=== PATIENT | female | born 1965 | race African-American/Black ===

== ENCOUNTER 2020-09-14 09:13 | Emergency (ER) | payer MEDICAID, MEDICARE ==
[~2020-09-14] VITALS: Ht 165.1 cm; Wt 91.0 kg
[~2020-09-14 09:13] MED LIST: HTN MEDS; LOVA10TA54
[2020-09-14] MEDS ORDERED: HYDROCODONE/ACETAMINOPHEN 5/325MG TABLET PO ONE (10:15)
[2020-09-14] MEDS ORDERED: ONDANSETRON 4MG ODT PO ONE (10:15)
[2020-09-14] MEDS ORDERED: KETOROLAC 60MG/2ML VIAL IM ONE (10:30)
[2020-09-14 12:03] VITALS: BP 168/89
== END 2020-09-14 13:50 | disposition home or self-care (01) ==
LOC: ER 09:35
DX: M54.5 Low back pain (principal); I10 Essential (primary) hypertension; E78.5 Hyperlipidemia, unspecified
CPT/HCPCS: 72100; 96372; 99283; J1885; Q0162

== ENCOUNTER 2022-02-15 10:50 | Emergency (ER) | payer MEDICARE ==
[~2022-02-15] VITALS: Ht 165.1 cm; Wt 91.0 kg
[2022-02-15] MEDS ORDERED: SODIUM CHLORIDE 0.9% 1,000 ML IV ONE (11:15)
[2022-02-15] MEDS ORDERED: ACETAMINOPHEN 325MG TABLET PO ONE (11:15)
[2022-02-15] MEDS ORDERED: KETOROLAC 15MG/ML VIAL IV ONE (11:30)
[2022-02-15 11:45] LABS: HEMATOCRIT. 40.3 % (36.0-48.0); MEAN CORPUSCULAR HEMOGLOBIN 30.7 pg (28.0-32.0); MEAN PLATELET VOLUME 7.8 fl (7.4-10.4); PLATELET 224 x1000/uL (130-400); RED BLOOD CELL COUNT 4.58 mill/uL (4.2-5.4); RED CELL DISTRIBUTION WIDTH 13.4 % (11.6-14.6)
[2022-02-15 11:53] LABS: CHLORIDE 107 mEq/L (98-107)
[2022-02-15] MEDS ORDERED: DEXAMETHASONE 10 MG/ML VIAL IV NR (12:43)
[2022-02-15] MEDS ORDERED: DOXYCYCLINE 100MG in DEXTROSE 5% WATER 100ML IV NR (12:45)
[2022-02-15] MEDS ORDERED: DOXYCYCLINE HYCLATE 100 MG/VIAL IV ONE (12:45)
[2022-02-15] MEDS ORDERED: CEFTRIAXONE 1 G PREMIX 50 ML IV NR (12:45)
[2022-02-15 12:53] LABS: PLATELET ESTIMATE NORMAL
[2022-02-15 13:47] LABS: CLARITY URINE CLEAR (CLEAR); COLOR URINE YELLOW (YELLOW); KETONES URINE NEGATIVE (NEGATIVE); LEUKOCYTE ESTERASE URINE NEGATIVE (NEGATIVE); NITRITE URINE NEGATIVE (NEGATIVE); OCCULT BLOOD URINE NEGATIVE (NEGATIVE); PROTEIN URINE NEGATIVE (NEGATIVE); SPECIFIC GRAVITY URINE 1.014 (1.005-1.030)
[2022-02-15] MEDS ORDERED: ACETAMINOPHEN 500MG TABLET PO ONE (20:15)
[2022-02-15 20:37] VITALS: BP 110/55
== END 2022-02-15 20:35 | disposition admitted as inpatient to this hospital (09) ==
LOC: ER 11:15 → EDBEDREQ 11:18 → ER 20:35 → ENRESERV 02-16 08:23 → CANBEDREQ 02-16 08:30
DX: U07.1 COVID-19 (principal); J12.82 Pneumonia due to coronavirus disease 2019; J96.01 Acute respiratory failure with hypoxia; E78.00 Pure hypercholesterolemia, unspecified; I10 Essential (primary) hypertension; Z90.49 Acquired absence of other specified parts of digestive tract; Z88.5 Allergy status to narcotic agent
CPT/HCPCS: 36415; 70450; 71045; 80053; 81003; 83605; 84145; 85025; 86140; 87040; 87086; 87426; 87804; 93005; 96361; 96374; 96375; 99285; C9803; J1100; J1885; J7030; J3490; J7060

== ENCOUNTER 2023-11-10 16:45 | Emergency (ER) | payer MEDICAID, MEDICARE ==
[~2023-11-10] VITALS: Ht 165.1 cm; Wt 90.7 kg
[2023-11-10 17:32] VITALS: BP 140/73; PULSE 87; RESP 16; TEMP 98.2; O2SAT 99
[2023-11-10] MEDS ORDERED: CLOT113C TP (17:54)
== END 2023-11-10 19:41 | disposition home or self-care (01) ==
LOC: ER 17:08
DX: L60.3 Nail dystrophy (principal); B35.1 Tinea unguium; E78.00 Pure hypercholesterolemia, unspecified; I10 Essential (primary) hypertension; Z98.890 Other specified postprocedural states; Z88.5 Allergy status to narcotic agent
CPT/HCPCS: 99282

== ENCOUNTER 2024-06-08 13:22 | Emergency (ER) | payer MEDICAID ==
[~2024-06-08] VITALS: Ht 165.1 cm; Wt 85.7 kg
[~2024-06-08 13:22] MED LIST changes: +CLOT113C TP
[2024-06-08 13:38] VITALS: O2SAT 99
[2024-06-08 14:11] LABS: CLARITY URINE CLEAR (CLEAR); COLOR URINE YELLOW (YELLOW); GLUCOSE URINE NEGATIVE (NEGATIVE); KETONES URINE NEGATIVE (NEGATIVE); LEUKOCYTE ESTERASE URINE NEGATIVE (NEGATIVE); NITRITE URINE NEGATIVE (NEGATIVE); OCCULT BLOOD URINE NEGATIVE (NEGATIVE); PROTEIN URINE NEGATIVE (NEGATIVE); SPECIFIC GRAVITY URINE 1.014 (1.005-1.030)
[2024-06-08 14:18] LABS: CHLORIDE 103 mEq/L (98-107); POTASSIUM 3.1 mEq/L (3.5-5.1); SODIUM 139 mEq/L (136-145)
[2024-06-08 14:20] LABS: CARBON DIOXIDE 29 mEq/L (21-32)
[2024-06-08 14:21] LABS: CALCIUM 10.1 mg/dL (8.7-10.4)
[2024-06-08 14:25] LABS: CREATININE 0.9 mg/dL (0.6-1.0); TROPONIN I HIGH SENSITIVITY 6 ng/L (3.0-34)
[2024-06-08 14:26] LABS: GLUCOSE 93 mg/dL (70-105); UREA NITROGEN BLOOD 17 mg/dL (9-23)
[2024-06-08 14:27] LABS: ALANINE AMINOTRANSFERASE 27 IU/L (10-49); ALBUMIN 4.7 g/dL (3.2-4.8)
[2024-06-08 14:28] LABS: ASPARTATE AMINOTRANSFERASE 24 IU/L (<34); BASOPHILS % 0.5 % (0.0-2.0); BILIRUBIN DIRECT 0.2 mg/dL (<=3.0); BILIRUBIN TOTAL 0.6 mg/dL (0.1-1.0); EOSINOPHILS % 1.9 % (0.0-5.0); HEMATOCRIT. 40.1 % (36.0-48.0); LYMPHOCYTES % 31.5 % (20.0-50.0); MEAN CORPUSCULAR HEMOGLOBIN 30.4 pg (28.0-32.0); MEAN CORPUSCULAR HGB CONC 34.8 g/dL (31.0-37.0); MEAN CORPUSCULAR VOLUME 87.3 fL (81.0-99.0); MEAN PLATELET VOLUME 8.1 fl (7.4-10.4); NEUTROPHILS % 56.1 % (40.0-76.0); PLATELET 349 x1000/uL (130-400); PROTEIN TOTAL 7.9 g/dL (6.0-8.3); RED CELL DISTRIBUTION WIDTH 12.7 % (11.6-14.6); WHITE BLOOD COUNT 6.2 x1000/uL (4.5-11.0)
[2024-06-08] MEDS: KETOROLAC 15MG/ML VIAL IM ONE (15:59)
[2024-06-08 18:18] VITALS: BP 124/76; PULSE 91; RESP 18; TEMP 36.50292; O2SAT 100
== END 2024-06-08 19:38 | disposition home or self-care (01) ==
LOC: ER 13:36
DX: R10.13 Epigastric pain (principal); M54.32 Sciatica, left side; E78.00 Pure hypercholesterolemia, unspecified; I10 Essential (primary) hypertension; Z90.49 Acquired absence of other specified parts of digestive tract; Z88.5 Allergy status to narcotic agent
CPT/HCPCS: 99285; 76705; 80076; 80048; 81003; 83690; 85025; 84484; 36415; 93005; 96372; J1885